=== PATIENT | female | born 1975 | race Caucasian/White ===

== ENCOUNTER 2020-02-29 16:16 | Emergency (ER) | payer OTHER ==
[2020-02-29] MEDS ORDERED: TORAdol 30 mg Injection IV ONE (16:37)
[2020-02-29] MEDS ORDERED: TORAdol 30 mg Injection ONE (16:40)
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
[2020-02-29] MEDS ORDERED: SUBLIMAZE 100 MCG/2 ML IV ONE (17:12)
[2020-02-29] MEDS ORDERED: Zofran 4 MG/2 ML VIAL IV ONE (17:12)
[2020-02-29] MEDS ORDERED: Zofran 4 MG/2 ML VIAL ONE (17:16)
[2020-02-29] MEDS ORDERED: SUBLIMAZE 100 MCG/2 ML ONE (17:16)
[2020-02-29 17:52] VITALS: BP 95/62; PULSE 67; O2SAT 99
== END 2020-02-29 17:52 | disposition home or self-care (01) ==
LOC: ED 16:16
DX: G44.309 Post-traumatic headache, unspecified, not intractable (principal); S60.211A Contusion of right wrist, initial encounter; S90.01XA Contusion of right ankle, initial encounter; V49.49XA Driver injured in collision with other motor vehicles in traffic accident, initial encounter
CPT/HCPCS: 36000; 70450; 73110; 73610; 96374; 96375; 99285; J1885; J2405; J3010

== ENCOUNTER 2022-07-18 10:36 | Emergency (ER) | payer OTHER ==
--- NOTE | 2022-07-18 10:41 | ERPHSYRPT ---
- History of Present Illness Time Seen by Provider: 07/18/22 10:41 Source: patient Exam Limitations: no limitations Physician History: This is a 46-year-old white female patient who works at [employer] and is in contact with many individuals each day. She presents with less than 2-day history of body aches, headache and decreased appetite. Patient has had decreased oral intake over the last nearly 2 days. Patient denies chest pain. She denies cough. She denies abdominal pain. She has had no vomiting or diarrhea symptoms. She has no urinary complaints. She denies fevers Timing/Duration: day(s) (Less than 2 days) Cough Quality/Degree: no cough Possible Cause: no prior episodes Modifying Factors: Improves With: nothing Associated Symptoms: headache, muscle aches, No fever, No chills, No chest pain/soreness, No cough, No sore throat Allergies/Adverse Reactions: aspirin Allergy (Verified 07/18/22 10:45) codeine Allergy (Verified 07/18/22 10:45) Hx Tetanus, Diphtheria Vaccination/Date Given: Yes Hx Influenza Vaccination/Date Given: Yes Hx Pneumococcal Vaccination/Date Given: No Travel Risk - International Travel Have you traveled outside of the country in past 3 weeks: No - Coronavirus Screening Are you exhibiting any of the following symptoms?: Yes Symptoms: Headaches/Body Aches/Fatigue Close contact with a COVID-19 positive Pt in past 14-21 Days: No - Review of Systems Constitutional: No Symptoms Eyes: No Symptoms Ears, Nose, & Throat: No Symptoms, Throat Swelling Cardiac: No Symptoms Abdominal/Gastrointestinal: Appetite Changes Genitourinary Symptoms: No Symptoms Musculoskeletal: Arthralgias, Myalgias Skin: No Symptoms Neurological: Headache Psychological: No Symptoms Endocrine: No Symptoms Hematologic/Lymphatic: No Symptoms Immunological/Allergic: No Symptoms All Other Systems: Reviewed and Negative - Past Medical History Pertinent Past Medical History: Yes Neurological History: No Pertinent History ENT History: No Pertinent History Cardiac History: No Pertinent History Respiratory History: No Pertinent History Endocrine Medical History: No Pertinent History Musculoskeletal History: No Pertinent History GI Medical History: No Pertinent History History: No Pertinent History Psycho-Social History: No Pertinent History Female Reproductive Disorders: Cervical Cancer - Past Surgical History Past Surgical History: Yes Neuro Surgical History: No Pertinent History Cardiac: No Pertinent History Respiratory: No Pertinent History Gastrointestinal: No Pertinent History, Cholecystectomy Genitourinary: No Pertinent History Musculoskeletal: No Pertinent History Female Surgical History: Hysterectomy Other Surgical History: LEEP - Social History Smoking Status: Current every day smoker How long have you smoked: 30 years Exposure to second hand smoke: Yes Drug Use: none Patient Lives Alone: No - Nursing Vital Signs Nursing Vital Signs: Initial Vital Signs Temperature 98.4 F 07/18/22 10:46 Pulse Rate 54 L 07/18/22 10:46 Respiratory Rate 18 07/18/22 10:46 Blood Pressure 90/67 07/18/22 10:46 O2 Sat by Pulse Oximetry 95 07/18/22 10:46 Pain Scale Pain Intensity [All over body] 8 Pain Intensity 5 - Physical Exam General Appearance: no apparent distress, alert, anxiety, thin Eye Exam: PERRL/EOMI, eyes nml inspection Ears, Nose, Throat Exam: normal ENT inspection, moist mucous membranes Neck Exam: normal inspection, non-tender, supple, full range of motion Respiratory Exam: normal breath sounds, lungs clear, airway intact, No chest tenderness, No respiratory distress Cardiovascular Exam: regular rate/rhythm, normal heart sounds, normal peripheral pulses Gastrointestinal/Abdomen Exam: soft, normal bowel sounds, No tenderness Pelvic Exam: not done Rectal Exam: not done Back Exam: normal inspection, normal range of motion, No CVA tenderness, No vertebral tenderness Extremity Exam: normal inspection, normal range of motion, pelvis stable Neurologic Exam: alert, oriented x 3, cooperative, roll hand II-XII nml as tested, normal mood/affect, nml cerebellar function, nml station & gait, sensation nml Skin Exam: normal color, warm Lymphatic Exam: No adenopathy SpO2 Interpretation: normal O2 Delivery: Room Air - Course Nursing assessment & vital signs reviewed: Yes Ordered Tests: Active Orders 24 hr Category Date Time Status IV Insertion STAT Care 07/18/22 11:15 Active Pulse Oximetry (ED) STAT Care 07/18/22 10:59 Active BLOOD CULTURE Stat Lab 07/18/22 11:25 Received Lactic Acid Stat Lab 07/18/22 10:59 Completed [place] Screen Stat Lab 07/18/22 11:15 Completed UA W/RFX CULTURE Stat Lab 07/18/22 11:07 Completed Medication Summary Discontinued Medications Generic Name Dose Route Start Last Admin Trade Name Freq PRN Reason Stop Dose Admin Sodium Chloride 1,000 mls @ 999 mls/hr 07/18/22 10:58 07/18/22 12:08 Sodium Chloride 0.9% 1000 Ml IV 07/18/22 11:58 Infused .Q1H1M STA Infusion Sodium Chloride Confirm 07/18/22 11:06 Sodium Chloride 0.9% 1000 Ml Administered 07/18/22 11:07 Dose 1,000 mls @ ud .ROUTE .STK-MED ONE Morphine Sulfate 4 mg 07/18/22 11:41 07/18/22 11:58 Morphine Sulfate 4 Mg/Ml Injection IV 07/18/22 11:42 4 mg STAT ONE Administration Morphine Sulfate Confirm 07/18/22 11:57 Morphine Sulfate 4 Mg/Ml Injection Administered 07/18/22 11:58 Dose 4 mg .ROUTE .STK-MED ONE Ondansetron HCl 4 mg 07/18/22 11:15 07/18/22 11:17 Ondansetron Hcl 4 Mg/2 Ml Vial IV 07/18/22 11:16 4 mg STAT ONE Administration Ondansetron HCl Confirm 07/18/22 11:16 Ondansetron Hcl 4 Mg/2 Ml Vial Administered 07/18/22 11:17 Dose 4 mg .ROUTE .STK-MED ONE Lab/Rad Data: Laboratory Results 07/18/22 07/18/22 07/18/22 Range/Units 11:25 11:25 11:15 Lactic Acid (0.4-2.0) Urinalys Dipstick Clnc Urine Color (YELLOW) Urine Appearance (CLEAR) Urine pH (5-6) Ur Specific Palmer (1.005-1.025) POC Urine Protein Conf (Negative) Urine Ketones (NEGATIVE) Urine Nitrite (NEGATIVE) Urine Bilirubin (NEGATIVE) Urine Urobilinogen (0-1) mg/dL Urine Leukocytes (NEGATIVE) Urine WBC (Auto) (0-5) /HPF Urine RBC (Auto) (0-2) /HPF U Epithel Cells (Auto) (FEW) /HPF Urine Bacteria (Auto) (NEGATIVE) /HPF Urine RBC (0-5) Praveen/ul Urine Mucus (Auto) (NEGATIVE) /HPF Ur Culture Indicated? Urine Glucose (NEGATIVE) mg/dL Monoscreen NEGATIVE (Negative) Influenza Type A Ag NEGATIVE (NEGATIVE) Influenza Type B Ag NEGATIVE (NEGATIVE) RSV (PCR) NEGATIVE (Negative) SARS-CoV-2 (PCR) POSITIVE A (NEGATIVE) Group A Strep Antibody NOT DETECTED (NEGATIVE) 07/18/22 07/18/22 Range/Units 11:07 10:59 Lactic Acid 0.7 (0.4-2.0) Urinalys Dipstick Clnc MAIN LAB Urine Color YELLOW (YELLOW) Urine Appearance CLEAR (CLEAR) Urine pH 5.5 (5-6) Ur Specific Palmer >=1.030 A (1.005-1.025) POC Urine Protein Conf TRACE A (Negative) Urine Ketones NEGATIVE (NEGATIVE) Urine Nitrite NEGATIVE (NEGATIVE) Urine Bilirubin NEGATIVE (NEGATIVE) Urine Urobilinogen 0.2 (0-1) mg/dL Urine Leukocytes NEGATIVE (NEGATIVE) Urine WBC (Auto) 3-5 A (0-5) /HPF Urine RBC (Auto) 3-5 A (0-2) /HPF U Epithel Cells (Auto) RARE (FEW) /HPF Urine Bacteria (Auto) RARE (NEGATIVE) /HPF Urine RBC NEGATIVE (0-5) Praveen/ul Urine Mucus (Auto) SLIGHT A (NEGATIVE) /HPF Ur Culture Indicated? NO Urine Glucose NEGATIVE (NEGATIVE) mg/dL Monoscreen (Negative) Influenza Type A Ag (NEGATIVE) Influenza Type B Ag (NEGATIVE) RSV (PCR) (Negative) SARS-CoV-2 (PCR) (NEGATIVE) Group A Strep Antibody (NEGATIVE) - Progress Progress: improved Air Movement: good Progress Note: 07/18/22 12:47 Patient states that she has had hydrocodone in the past without any problems. She states that she has taken this medicine several times without issue. Blood Culture(s) Obtained: Yes Antibiotics given: No Counseled pt/family regarding: lab results, diagnosis, need for follow-up - Departure Departure Disposition: Home Clinical Impression: COVID-19 virus infection Condition: Stable Critical Care Time: No Additional Instructions: Drink plenty of fluids. Advance your diet only if you are drinking clear liquids well. Take your medication as prescribed. Follow-up with your primary care provider for further evaluation and management. Quarantine yourself per your employer's protocol. Prescriptions: Ondansetron ODT 4 MG [Zofran Odt 4 mg] 4 mg PO Q6H PRN PRN #10 tablet PRN Reason: Vomiting Hydrocodone/Acetaminophen [Hydrocodone-Acetamn 7.5-325/15] 10 ml PO Q8H PRN PRN #120 ml MDD 30 ml PRN Reason: Cough
[2022-07-18] MEDS ORDERED: Sodium Chloride 0.9% 1000 ML 1,000 ML IV STA (10:58)
[2022-07-18] MEDS ORDERED: Sodium Chloride 0.9% 1000 ML 1,000 ML ONE (11:06)
[2022-07-18] MEDS ORDERED: Zofran 4 MG/2 ML VIAL IV ONE (11:15)
[2022-07-18] MEDS ORDERED: Zofran 4 MG/2 ML VIAL ONE (11:16)
[2022-07-18] MEDS ORDERED: MORPHINE SULFATE 4 MG INJ IV ONE (11:41)
[2022-07-18 11:43] LABS: Bacteria RARE /HPF (NEGATIVE); Epithelial Cells RARE /HPF (FEW); Mucus SLIGHT /HPF (NEGATIVE)
[2022-07-18 11:44] LABS: Appearance CLEAR (CLEAR); Bilirubin NEGATIVE (NEGATIVE); Dipstick done @ ? MAIN LAB; Glucose NEGATIVE (NEGATIVE); Ketones NEGATIVE (NEGATIVE); Nitrite NEGATIVE (NEGATIVE); Ph 5.5 (5-6); Protein,Urine Dip TRACE (Negative); RBC NEGATIVE Ery/ul (0-5); Specific Gravity >=1.030 (1.005-1.025); Urobilinogen 0.2 mg/dL (0-1)
[2022-07-18 11:45] LABS: Urine Cultured Indicated? NO
[2022-07-18] MEDS ORDERED: MORPHINE SULFATE 4 MG INJ ONE (11:57)
[2022-07-18 12:01] VITALS: BP 106/75
[2022-07-18 12:03] VITALS: PULSE 56
[2022-07-18 12:10] LABS: INFLUENZA A NEGATIVE (NEGATIVE); INFLUENZA B NEGATIVE (NEGATIVE); RESPIRATORY SYNCTIAL VIRUS NEGATIVE (Negative)
[2022-07-18 12:14] LABS: SARS-CoV-2 Xpert Express POSITIVE (NEGATIVE)
[2022-07-18 12:50] VITALS: O2SAT 98
== END 2022-07-18 12:58 | disposition home or self-care (01) ==
LOC: ED 10:36
DX: U07.1 COVID-19 (principal); R51.9 Headache, unspecified; M79.10 Myalgia, unspecified site; Z79.891 Long term (current) use of opiate analgesic; Z72.0 Tobacco use
CPT/HCPCS: 0241U; 36000; 36415; 81015; 83605; 86308; 87040; 87651; 94760; 96374; 96375; 99284; J2270; J2405

== ENCOUNTER 2023-01-24 07:21 | Emergency (ER) | payer OTHER ==
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
[2023-01-24] MEDS ORDERED: PROTONIX 40 MG IV IV ONE ×2 (07:28→07:37)
[2023-01-24] MEDS ORDERED: Sodium Chloride 0.9% 1000 ML 1,000 ML IV STA (07:28)
[2023-01-24] MEDS ORDERED: Zofran 4 MG/2 ML VIAL IV ONE (07:28)
[2023-01-24] MEDS ORDERED: Zofran 4 MG/2 ML VIAL ONE (07:37)
[2023-01-24] MEDS ORDERED: Sodium Chloride 0.9% 1000 ML 1,000 ML ONE (07:37)
[2023-01-24 07:44] LABS: Absolute Neutrophil Ct (ANC) 4.86 x10^3/uL (1.4-6.9); BASOPHIL % 0.7 % (0.0-0.4); Basophil (Absolute #) 0.05 x10^3/uL (0-0.4); Eosinophil % 2.2 % (0.00-5.0); Eosinophil (Absolute #) 0.15 x10^3/uL (0-0.5); Hematocrit 38.8 % (35-47); Hemoglobin 12.7 g/dL (12.0-16.0); IMMATURE GRAN # 0.02 x10^3u/L (0.00-0.03); IMMATURE GRAN % 0.3 % (0.00-0.4); Lymphocyte (Absolute #) 1.31 x10^3/uL (1.0-4.6); Lymphocytes % 18.9 % (24.0-44.0); Mean Cell Volume 100.8 fL (78-100); Mean Corpuscular Hgb Concent. 32.7 g/dL (32-36); Monocyte (Absolute #) 0.55 x10^3/uL (0.0-1.3); Monocytes % 7.9 % (0.0-12.0); Platelet Count 224 x10^3/uL (150-450); Red Blood Count 3.85 x10^6/uL (4.1-5.4); Red Cell Distribution Width 11.3 % (11.5-14.0); White Blood Count 6.9 x10^3/uL (4.0-10.5)
[2023-01-24 07:57] LABS: ALBUMIN 4.1 g/dL (3.5-5.0); ALKALINE PHOSPHATASE 41 U/L (38-126); AMYLASE 70 U/L (30-110); BLOOD UREA NITROGEN 10 mg/dL (7-17); CHLORIDE 112 mmol/L (98-107); Calcium 8.4 mg/dL (8.4-10.2); Carbon Dioxide 21 mmol/L (22-30); Creatinine 1 0.75 mg/dL (0.52-1.04); EST GLOMERULAR FILTRATION RATE > 60.0 ML/MIN; Glucose 84 mg/dL (74-106); LIPASE 111 U/L (23-300); Potassium 3.4 mmol/L (3.5-5.1); SGOT/AST 17 U/L (14-36); SGPT/ALT 14 U/L (0-35); SODIUM 143 mmol/L (137-145); Total Protein 7.2 g/dL (6.3-8.2)
[2023-01-24 08:03] VITALS: PULSE 57
[2023-01-24 08:29] LABS: INFLUENZA A NEGATIVE (NEGATIVE); INFLUENZA B NEGATIVE (NEGATIVE); RESPIRATORY SYNCTIAL VIRUS NEGATIVE (NEGATIVE); SARS-CoV-2 Xpert Express NEGATIVE (NEGATIVE)
--- NOTE | 2023-01-24 08:36 | XRAY ---
Indication: Weakness and nausea. Multiple contiguous axial images obtained through the head without contrast. Comparison: February 29, 2020 Normal appearing brain parenchyma, ventricles, and bony calvarium. Visualized paranasal sinuses and mastoid air cells are clear. Impression: Continued normal CT head without contrast exam.
[2023-01-24] MEDS ORDERED: Klor Con PO ONE ×2 (08:53→09:33)
[2023-01-24 09:00] LABS: Amphetamine,Urine POSITIVE (NEGATIVE); Barbiturate,Urine NEGATIVE (NEGATIVE); Benzodiazepine,Urine POSITIVE (NEGATIVE); Cocaine,Urine NEGATIVE (NEGATIVE); Methadone,Urine NEGATIVE (NEGATIVE); Opiate,Urine NEGATIVE (NEGATIVE); PCP,Urine NEGATIVE (NEGATIVE); THC,Urine NEGATIVE (NEGATIVE)
[2023-01-24 09:12] LABS: Appearance Cloudy (Clear); Bacteria None Seen /HPF (None Seen); Bilirubin Negative (Negative); Blood Negative (Negative); Epithelial Cells Few /HPF (None Seen); Glucose, Urine Negative (Negative); Ketones Trace (Negative); Leukocyte Esterase Negative (Negative); Nitrite Negative (Negative); Ph 5.5 (4.6-8.0); Protein,Urine Dip Negative (Negative); RBC 0-2 /HPF (0-5); Specific Gravity 1.025 (1.005-1.030)
[2023-01-24 09:13] LABS: ADD URINE CULTURE? NO (NO); WBC 0-2 /HPF (0-5)
[2023-01-24 09:53] VITALS: BP 94/59; O2SAT 99
== END 2023-01-24 10:08 | disposition home or self-care (01) ==
LOC: ED 07:21
DX: R55 Syncope and collapse (principal); T44.6X5A Adverse effect of alpha-adrenoreceptor antagonists, initial encounter; R51.9 Headache, unspecified; R07.9 Chest pain, unspecified; R11.2 Nausea with vomiting, unspecified; Z79.899 Other long term (current) drug therapy; Z28.310 Unvaccinated for COVID-19; Z72.0 Tobacco use
CPT/HCPCS: 0241U; 36415; 70450; 80053; 80307; 81001; 82150; 83690; 84484; 85025; 93005; 96360; 96374; 96375; 99284; J2405; A9270-GY

== ENCOUNTER 2023-08-30 15:01 | Emergency (ER) | payer OTHER ==
--- NOTE | 2023-08-30 15:03 | ERPHSYRPT ---
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 Patient has a history anxiety, chronic anemia and some psychiatric issues as well as seizure issues. Occurred: just prior to arrival Method of Injury: other (Lifting) Quality: aching Severity of Pain-Max: mild (To moderate) Severity of Pain-Current: mild (To moderate) Extremities Pain Location: elbow: right Modifying Factors: Improves With: movement Associated Symptoms: none Allergies/Adverse Reactions: aspirin Allergy (Verified 08/30/23 15:05) codeine Allergy (Verified 08/30/23 15:05) Home Medications: ALPRAZolam 0.25 MG [xanAX 0.25 MG] 0.25 mg PO HS PRN 01/24/23 [History] Dextroamphetamine/Amphetamine [Adderall Xr 25 mg Capsule] 25 mg PO DAILY 01/24/23 [History] Topiramate 100 mg [Topamax 100 MG] 100 mg PO BID 01/24/23 [History] ziprasidone HCL [Ziprasidone HCl] 40 mg PO DAILY 01/24/23 [History] Meloxicam 15 mg [Meloxicam 15 MG] 15 mg PO DAILY 08/30/23 [History] Hx Tetanus, Diphtheria Vaccination/Date Given: Yes Hx Influenza Vaccination/Date Given: Yes Hx Pneumococcal Vaccination/Date Given: No Travel Risk - International Travel Have you traveled outside of the country in past 3 weeks: No - Coronavirus Screening Are you exhibiting any of the following symptoms?: No Close contact with a COVID-19 positive Pt in past 14-21 Days: No - Vaccine Status Have you recieved a Covid-19 vaccination: No - Review of Systems Constitutional: No Symptoms Eyes: No Symptoms Ears, Nose, & Throat: No Symptoms Respiratory: No Symptoms Cardiac: No Symptoms Abdominal/Gastrointestinal: No Symptoms Genitourinary Symptoms: No Symptoms Musculoskeletal: Injury Skin: No Symptoms (Right elbow) Neurological: No Symptoms Psychological: No Symptoms Endocrine: No Symptoms Hematologic/Lymphatic: No Symptoms Immunological/Allergic: No Symptoms All Other Systems: Reviewed and Negative - Past Medical History Pertinent Past Medical History: Yes Neurological History: No Pertinent History ENT History: No Pertinent History Cardiac History: No Pertinent History Respiratory History: No Pertinent History Endocrine Medical History: No Pertinent History Musculoskeletal History: No Pertinent History GI Medical History: No Pertinent History History: No Pertinent History Psycho-Social History: No Pertinent History Female Reproductive Disorders: Cervical Cancer Other Medical History: fluid around her heart, low B/P, anemia - Past Surgical History Past Surgical History: Yes Neuro Surgical History: No Pertinent History Cardiac: No Pertinent History Respiratory: No Pertinent History Gastrointestinal: No Pertinent History, Cholecystectomy Genitourinary: No Pertinent History Musculoskeletal: No Pertinent History Female Surgical History: Hysterectomy Other Surgical History: LEEP - Social History Smoking Status: Current every day smoker How long have you smoked: 30 years Exposure to second hand smoke: Yes Drug Use: none Patient Lives Alone: No - Nursing Vital Signs Nursing Vital Signs: Initial Vital Signs Pulse Rate 57 L 08/30/23 15:07 Blood Pressure 111/77 08/30/23 15:07 O2 Sat by Pulse Oximetry 99 08/30/23 15:07 Pain Scale Pain Intensity 7 - Physical Exam General Appearance: no apparent distress, alert, anxiety Eyes, Ears, Nose, Throat Exam: normal ENT inspection, moist mucous membranes Neck Exam: normal inspection, non-tender, supple, full range of motion Cardiovascular/Respiratory Exam: chest non-tender, no respiratory distress Abdominal Exam: non-tender Back Exam: normal inspection, normal range of motion, No CVA tenderness, No vertebral tenderness Shoulder Exam: normal inspection, non-tender, no evidence of injury, normal ROM Elbow/Forearm Exam: normal inspection, no evidence of injury, normal ROM, bone tenderness, soft tissue tenderness Hand Exam: normal inspection, non-tender, no evidence of injury, normal ROM Neuro/Tendon Exam: normal sensation, normal motor functions, normal tendon functions Mental Status Exam: alert, oriented x 3, cooperative Skin Exam: normal color, warm, dry SpO2 Interpretation: normal O2 Delivery: Room Air - Course Nursing assessment & vital signs reviewed: Yes Ordered Tests: Active Orders 24 hr Category Date Time Status ELBOW (MINIMUM 3 VIEWS) Stat Exams 08/30/23 15:12 Taken - Progress Progress: unchanged Progress Note: 08/30/23 15:44 This patient's medical issue is 1 of moderate complexity. Level complex in the workup performed is based on review of the patient's past medical history, review the patient's medication list, review of patient's drug allergy list, history present illness and physical findings on examination. The patient workup includes x-ray of the right elbow. I interpreted the x-ray of the right elbow. There is no acute fracture. There is no acute dislocation. 08/30/23 16:06 Patient states that she can take hydrocodone. I will remotely send a prescription to her pharmacy for a couple days worth of this medication. Counseled pt/family regarding: diagnosis, need for follow-up, rad results Medical Desision Making - Independent Historian Additional History obtained from: Spouse - Diagnostic Testing Diagnostic test were ordered, analyzed, and reviewed by me: Yes Radiological Interpretation: Interpreted by me - Risk of complications The pt has a mod risk of morbidity or mortality based on: Need for prescription drug management - Departure Departure Disposition: Home Clinical Impression: Right elbow pain Condition: Stable Critical Care Time: No Referrals: YEMI GAN PA [Primary Care Provider] - Follow up/PCP as directed Additional Instructions: Ice pack to tender area 3 times a day for the next 48 hours. Take your medications as prescribed. Follow-up with your primary care provider by phone next week for persistent symptoms. Forms: Work/School Release Form Prescriptions: Hydrocodone/APAP 5/325 [[place] 5/325 mg] 1 each PO Q8H PRN PRN #6 tablet MDD 3 PRN Reason: Pain
[2023-08-30 15:21] VITALS: PULSE 63; RESP 16; TEMP 97.9
[2023-08-30 16:07] VITALS: BP 109/79; O2SAT 98
--- NOTE | 2023-08-30 21:39 | XRAY ---
Indication: Pain. Comparison: None 3 view right elbow obtained. No bony, articular, or soft tissue abnormalities.
== END 2023-08-30 16:22 | disposition home or self-care (01) ==
LOC: ED 15:01
DX: M25.521 Pain in right elbow (principal); Z79.891 Long term (current) use of opiate analgesic; Z79.899 Other long term (current) drug therapy; Z28.310 Unvaccinated for COVID-19; Z72.0 Tobacco use
CPT/HCPCS: 73080; 99283

== ENCOUNTER 2023-09-24 13:43 | Emergency (ER) | payer OTHER ==
[2023-09-24 14:05] VITALS: BP 133/77; PULSE 58; RESP 18; TEMP 97.2; O2SAT 100
[2023-09-24] MEDS ORDERED: Adacel Vial IM ONE ×2 (15:01→15:10)
[2023-09-24] MEDS ORDERED: TYLENOL 325 MG PO ONE (15:01)
--- NOTE | 2023-09-24 15:05 | ERPHSYRPT ---
- History of Present Illness Time Seen by Provider: 09/24/23 14:40 Source: patient Exam Limitations: no limitations Patient Subjective Stated Complaint: Finger laceration Triage Nursing Assessment: Patient ambulated back to ED and transferred self to bed. Patient A+O X3. Patient's skin pink, warm and dry. Patient states she works at [employer] and was using a journal box inspector when her hand slipped causing the blade to cut her left hand, 2nd digit. Patient complains of pain 8/10 to finger. 0.3 skin flap noted to left hand, 2nd digit, bleeding well controlled. Physician History: 48-year-old female presents to the emergency department for evaluation of a laceration to the lateral aspect of her left index finger. Patient works at the [employer]. Patient was using a journal box inspector when the journal box inspector repor tedly slipped and injured her involved finger. Patient presented to our ED as she was concerned with the bleeding. However upon arrival bleeding had resolved. There is a small superficial laceration observed. No other injuries reported. Tetanus is not up-to-date. Patient is otherwise healthy. She voices no other complaints or concerns at this time. No foreign body sensation of the involved digit Portions of this note were created with voice recognition technology. There may be grammatical, spelling, punctuation or sound alike errors Timing/Duration: today Severity: mild Modifying Factors: Improves With: nothing Associated Symptoms: denies symptoms Allergies/Adverse Reactions: aspirin Allergy (Verified 09/24/23 13:55) codeine Allergy (Verified 09/24/23 13:55) Home Medications: ALPRAZolam 0.25 MG [xanAX 0.25 MG] 0.25 mg PO HS PRN 01/24/23 [History] Dextroamphetamine/Amphetamine [Adderall Xr 25 mg Capsule] 25 mg PO DAILY 01/24/23 [History] Topiramate 100 mg [Topamax 100 MG] 100 mg PO BID 01/24/23 [History] ziprasidone HCL [Ziprasidone HCl] 40 mg PO DAILY 01/24/23 [History] Meloxicam 15 mg [Meloxicam 15 MG] 15 mg PO DAILY 08/30/23 [History] Hx Tetanus, Diphtheria Vaccination/Date Given: No Hx Influenza Vaccination/Date Given: Yes Hx Pneumococcal Vaccination/Date Given: No Immunizations Up to Date: Yes Travel Risk - International Travel Have you traveled outside of the country in past 3 weeks: No - Coronavirus Screening Are you exhibiting any of the following symptoms?: No - Vaccine Status Have you recieved a Covid-19 vaccination: No - Review of Systems Constitutional: No Symptoms, No Fever, No Chills Eyes: No Symptoms Ears, Nose, & Throat: No Symptoms Respiratory: No Symptoms, No Cough, No Dyspnea Cardiac: No Symptoms, No Chest Pain, No Edema, No Syncope Abdominal/Gastrointestinal: No Symptoms, No Abdominal Pain, No Nausea, No Vomiting, No Diarrhea Genitourinary Symptoms: No Symptoms, No Dysuria Musculoskeletal: No Symptoms, No Back Pain, No Neck Pain Skin: No Symptoms, No Rash Neurological: No Symptoms, No Dizziness, No Focal Weakness, No Sensory Changes Psychological: No Symptoms Endocrine: No Symptoms Hematologic/Lymphatic: No Symptoms Immunological/Allergic: No Symptoms All Other Systems: Reviewed and Negative - Past Medical History Pertinent Past Medical History: Yes Neurological History: No Pertinent History ENT History: No Pertinent History Cardiac History: No Pertinent History Respiratory History: No Pertinent History Endocrine Medical History: No Pertinent History Musculoskeletal History: No Pertinent History GI Medical History: No Pertinent History History: No Pertinent History Psycho-Social History: No Pertinent History Female Reproductive Disorders: Cervical Cancer Other Medical History: fluid around her heart, low B/P, anemia - Past Surgical History Past Surgical History: Yes Neuro Surgical History: No Pertinent History Cardiac: No Pertinent History Respiratory: No Pertinent History Gastrointestinal: No Pertinent History, Cholecystectomy Genitourinary: No Pertinent History Musculoskeletal: No Pertinent History Female Surgical History: Hysterectomy Other Surgical History: LEEP - Social History Smoking Status: Current every day smoker How long have you smoked: 30 years Exposure to second hand smoke: Yes Drug Use: none Patient Lives Alone: No - Female History Hx Last Menstrual Period: partial hysterectomy Hx Now: No - Nursing Vital Signs Nursing Vital Signs: Initial Vital Signs Temperature 97.2 F 09/24/23 13:57 Pulse Rate 58 L 09/24/23 13:57 Respiratory Rate 18 09/24/23 13:57 Blood Pressure 133/77 09/24/23 13:57 O2 Sat by Pulse Oximetry 100 09/24/23 13:57 Pain Scale Pain Intensity 8 - Physical Exam General Appearance: no apparent distress, alert Eye Exam: PERRL/EOMI, eyes nml inspection Neck Exam: normal inspection, full range of motion Respiratory Exam: normal breath sounds, airway intact, No respiratory distress Cardiovascular Exam: regular rate/rhythm, normal peripheral pulses Gastrointestinal/Abdomen Exam: No tenderness, No mass Back Exam: normal range of motion, No CVA tenderness, No vertebral tenderness Extremity Exam: normal inspection, normal range of motion, pelvis stable, other (There is a 1 cm laceration superficial left lateral index finger. No active bleeding. Skin edges are well-approximated. Involved digits neurovascular intact distally compartments are soft cap refill less than 2 seconds. Pulse palpable. The involved fingers pink warm well-perfused no involvement) Neurologic Exam: alert, oriented x 3, cooperative, normal mood/affect, sensation nml, No motor deficits Skin Exam: normal color, warm, dry, No rash Lymphatic Exam: No adenopathy SpO2 Interpretation: normal SpO2: 100 O2 Delivery: Room Air - Course Nursing assessment & vital signs reviewed: Yes - Progress Progress: improved Progress Note: 48-year-old female presents to the emergency department for evaluation of a superficial laceration to the lateral aspect of her left index finger. No involvement of her tendon. The involved digits neurovascular tact distally. Hemostasis observed upon arrival. No need for suture repair. Dermabond applied. Involved digits neurovascular tact distally. Tetanus updated. Patient received Tylenol for pain control as she is allergic to NSAIDs. No indication for further workup at this time. No indication for x-ray. No foreign body sensation at the site of involvement. Patient voices no other complaints or concerns at this time. Portions of this note were created with voice recognition technology. There may be grammatical, spelling, punctuation or sound alike errors Complexity of problem addressed is low acute uncomplicated No critical care time Complexity of data reviewed and analyzed is none. Diagnosis made based on history and physical exam. No specialized testing ordered. Risk of complication and or risk of morbidity/mortality is low. No indication for antibiotics at this time. Patient agrees to follow-up with her primary care doctor within 48 hours for evaluation. Patient be discharged home vital stable. Time spent to discharge patient is approximately 10 minutes. Plan of care established for shared decision making. No social determinants of health present impede follow-up. Portions of this note were created with voice recognition technology. There may be grammatical, spelling, punctuation or sound alike errors 09/24/23 15:08 Counseled pt/family regarding: diagnosis, need for follow-up - Departure Departure Disposition: Home Clinical Impression: Finger laceration Condition: Stable Critical Care Time: No Referrals: YEMI GAN PA [Primary Care Provider] - Follow up/PCP as directed Additional Instructions: Discharge/Care Plan JANNETTE SANCHEZ was seen on 09/24/23 in the Emergency Room. The patient was c ounseled regarding Diagnosis,Lab results, Imaging studies, need for follow up and when to return to the Emergency Room. Prescriptions given: Discharge Note I have spoken with the patient and/or caregivers. I have explained the patient's condition, diagnosis and treatment plan based on the information available to me at this time. I have answered the patient's and/or caregiver's questions and addressed any concerns. The patient and/or caregivers have as good understanding of the patient's diagnosis, condition and treatment plan as can be expected at this point. The vital signs have been stable. The patient's condition is stable and appropriate for discharge from the emergency department. The patient will pursue further outpatient evaluation with the primary care physician or other designated or consulting physician as outlined in the discharge instructions. The patient and/or caregivers are agreeable to this plan of care and follow-up instructions have been explained in detail. The patient and/or caregivers have received these instruction. The patient/and or caregivers are aware that any significant change in condition or worsening of symptoms should prompt an immediate return to this or the closest emergency department or call 911.
[2023-09-24] MEDS ORDERED: TYLENOL 325 MG ONE (15:10)
== END 2023-09-24 15:20 | disposition home or self-care (01) ==
LOC: ED 13:43
DX: S61.211A Laceration without foreign body of left index finger without damage to nail, initial encounter (principal); W26.0XXA Contact with knife, initial encounter; Y92.512 Supermarket, store or market as the place of occurrence of the external cause; Y99.0 Civilian activity done for income or pay; Z79.899 Other long term (current) drug therapy; Z28.310 Unvaccinated for COVID-19; Z72.0 Tobacco use; Z23 Encounter for immunization
CPT/HCPCS: 12001; 90471; 90715; 99282; A9270-GY

== ENCOUNTER 2024-05-20 20:40 | Emergency (ER) | payer SELFPAY ==
[2024-05-20 20:59] VITALS: TEMP 97.6
[2024-05-20 21:06] LABS: Absolute Neutrophil Ct (ANC) 3.75 x10^3/uL (1.56-6.13); BASOPHIL % 0.7 % (0.1-1.2); Basophil (Absolute #) 0.05 x10^3/uL (0.01-0.08); Eosinophil % 1.5 % (0.7-5.8); Eosinophil (Absolute #) 0.11 x10^3/uL (0.04-0.36); Hematocrit 38.2 % (34.1-44.9); Hemoglobin 12.7 g/dL (11.2-15.7); IMMATURE GRAN # 0.01 x10^3u/L (0.001-0.031); IMMATURE GRAN % 0.1 % (0.001-0.429); Lymphocyte (Absolute #) 2.69 x10^3/uL (1.18-3.74); Lymphocytes % 37.7 % (19.3-51.7); Mean Cell Volume 99.2 fL (79.4-94.8); Mean Corpuscular Hgb Concent. 33.2 g/dL (32.2-35.5); Mean Platelet Volume 10.3 fL (9.4-12.3); Monocyte (Absolute #) 0.53 x10^3/uL (0.24-0.86); Monocytes % 7.4 % (4.7-12.5); Neutrophil % 52.6 % (34.0-71.1); Platelet Count 243 x10^3/uL (182-369); Red Blood Count 3.85 x10^6/uL (3.93-5.22); Red Cell Distribution Width 11.9 % (11.7-14.4); White Blood Count 7.1 x10^3/uL (3.98-10.04)
[2024-05-20] MEDS ORDERED: Sodium Chloride 0.9% 1000 ML 1,000 ML ONE (21:08)
[2024-05-20] MEDS ORDERED: TORAdol 30 mg Injection ONE (21:08)
[2024-05-20] MEDS: Sodium Chloride 0.9% 1000 ML 1,000 ML IV STA (21:11)
[2024-05-20] MEDS: TORAdol 30 mg Injection IV ONE (21:12)
--- NOTE | 2024-05-20 21:31 | ERPHSYRPT ---
- History of Present Illness Time Seen by Provider: 05/20/24 20:50 Source: patient Exam Limitations: no limitations Patient Subjective Stated Complaint: c/o of body aches, ear pain, sore throat, and migraines Triage Nursing Assessment: Pt brought to ED by chirag for a well adult check. Patient states she hasn't felt well int he past 2 days. Symptoms of body aches, migraines, sore throat, chills, and bilat. ear pain. Pt stated she had recently pulled three ticks of off her. Pt's vitals wnl, gait steady, skin w/n/d, pulses normal, pt doesn't appear to be in any distress at this time. Physician History: 48-year-old female presents to emergency department for evaluation of viral-like symptoms. Symptoms started today. Patient complaining of a headache sore throat ear pressure generalized bodyaches. 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 Patient is exposed to many people but no obvious sick contacts. No vomiting. No frantz rrhea no rash. No fever. Symptoms are mild to moderate in intensity. No specific worsening or improving factors. Significant other at bedside. They voiced no other complaints or concerns at this time. Portions of this note were created with voice recognition technology. There may be grammatical, spelling, punctuation or sound alike errors Timing/Duration: today Severity: moderate Modifying Factors: Improves With: nothing Associated Symptoms: denies symptoms Allergies/Adverse Reactions: aspirin Allergy (Verified 09/24/23 13:55) codeine Allergy (Verified 05/20/24 21:00) Home Medications: ALPRAZolam 0.25 MG [xanAX 0.25 MG] 0.25 mg PO HS PRN 01/24/23 [History] Dextroamphetamine/Amphetamine [Adderall Xr 25 mg Capsule] 25 mg PO DAILY 01/24/23 [History] Topiramate 100 mg [Topamax 100 MG] 100 mg PO BID 01/24/23 [History] Meloxicam 15 mg [Meloxicam 15 MG] 15 mg PO DAILY 08/30/23 [History] Estradiol 1 mg [Estrace 1 mg] 1 mg PO DAILY 05/20/24 [History] Hx Tetanus, Diphtheria Vaccination/Date Given: Yes Hx Influenza Vaccination/Date Given: No Hx Pneumococcal Vaccination/Date Given: No Travel Risk - International Travel Have you traveled outside of the country in past 3 weeks: No - Emerging Infectious Disease Are you exhibiting symptoms associated with any current EIDs: Yes Symptoms: Headaches/Body Aches/ - Review of Systems Constitutional: No Symptoms, No Fever, No Chills Eyes: No Symptoms Ears, Nose, & Throat: No Symptoms, Other (Anterior cervical lymphadenopathy) Respiratory: No Symptoms, No Cough, No Dyspnea Cardiac: No Symptoms, No Chest Pain, No Edema, No Syncope Abdominal/Gastrointestinal: No Symptoms, No Abdominal Pain, No Nausea, No Vomiting, No Diarrhea Genitourinary Symptoms: No Symptoms, No Dysuria Musculoskeletal: No Symptoms, No Back Pain, No Neck Pain Skin: No Symptoms, No Rash Neurological: No Symptoms, No Dizziness, No Focal Weakness, No Sensory Changes Psychological: No Symptoms Endocrine: No Symptoms Hematologic/Lymphatic: No Symptoms Immunological/Allergic: No Symptoms All Other Systems: Reviewed and Negative - Past Medical History Pertinent Past Medical History: Yes Neurological History: No Pertinent History ENT History: No Pertinent History Cardiac History: No Pertinent History Respiratory History: No Pertinent History Endocrine Medical History: No Pertinent History Musculoskeletal History: No Pertinent History GI Medical History: No Pertinent History, Other History: No Pertinent History Psycho-Social History: No Pertinent History Female Reproductive Disorders: Cervical Cancer Other Medical History: fluid around her heart, low B/P, anemia, gall stones, calcification of kidneys - Past Surgical History Past Surgical History: Yes Neuro Surgical History: No Pertinent History Cardiac: No Pertinent History Respiratory: No Pertinent History Gastrointestinal: No Pertinent History, Cholecystectomy Genitourinary: No Pertinent History Musculoskeletal: No Pertinent History Female Surgical History: Hysterectomy Other Surgical History: LEEP - Female History Hx Last Menstrual Period: hysterectomy Hx Now: No - Social History Smoking Status: Former smoker How long have you smoked: 30 years Exposure to second hand smoke: Yes Drug Use: none Patient Lives Alone: No - Social Determinants of Health Will the patient participate in the screening: Yes Do you worry about a steady place to live?: No Do you have any problems with any of the following?: No known problems In the past 12 months,have you had to go without utilities?: No Transportation Issues: No Has anyone in your support network made you feel unsafe?: No Have you or anyone in your house had to go without enough: No - Nursing Vital Signs Nursing Vital Signs: Initial Vital Signs Temperature 97.6 F 05/20/24 20:45 Pulse Rate 61 05/20/24 20:45 Respiratory Rate 18 05/20/24 20:45 Blood Pressure 115/82 05/20/24 20:45 O2 Sat by Pulse Oximetry 99 05/20/24 20:45 Pain Scale Pain Intensity 8 - Physical Exam General Appearance: no apparent distress, alert Eye Exam: PERRL/EOMI, eyes nml inspection Ears, Nose, Throat Exam: normal ENT inspection, moist mucous membranes Neck Exam: normal inspection, non-tender, supple, full range of motion Respiratory Exam: normal breath sounds, lungs clear, airway intact, No respiratory distress Cardiovascular Exam: regular rate/rhythm, normal heart sounds, normal peripheral pulses Gastrointestinal/Abdomen Exam: soft, normal bowel sounds, No tenderness, No mass Back Exam: normal inspection, normal range of motion, No CVA tenderness, No vertebral tenderness Extremity Exam: normal inspection, normal range of motion, pelvis stable Neurologic Exam: alert, oriented x 3, cooperative, normal mood/affect, nml cerebellar function, nml station & gait, sensation nml, No motor deficits Skin Exam: normal color, warm, dry, No rash Lymphatic Exam: No adenopathy SpO2 Interpretation: normal SpO2: 99 O2 Delivery: Room Air - Course Nursing assessment & vital signs reviewed: Yes Ordered Tests: Active Orders 24 hr Category Date Time Status Automotive Instructor STAT Care 05/20/24 20:55 Active IV Insertion STAT Care 05/20/24 20:54 Active Pulse Oximetry (ED) STAT Care 05/20/24 20:54 Active CBC W DIFF Stat Lab 05/20/24 21:00 Completed CMP Stat Lab 05/20/24 21:00 Completed HCG QUALITATIVE, URINE Stat Lab 05/20/24 22:16 Completed MAGNESIUM Stat Lab 05/20/24 21:00 Completed TROPONIN Q4H Lab 05/20/24 21:00 Completed TROPONIN Q4H Lab 05/21/24 01:00 Ordered TROPONIN Q4H Lab 05/21/24 05:00 Ordered UA W/RFX UR CULTURE Stat Lab 05/20/24 22:16 Completed Medication Summary Discontinued Medications Generic Name Dose Route Start Last Admin Trade Name Freq PRN Reason Stop Dose Admin Sodium Chloride 1,000 mls @ 999 mls/hr 05/20/24 20:54 05/20/24 21:11 Sodium Chloride 0.9% 1000 Ml IV 05/20/24 21:54 999 mls/hr .Q1H1M STA Administration Sodium Chloride Confirm 05/20/24 21:08 Sodium Chloride 0.9% 1000 Ml Administered 05/20/24 21:09 Dose 1,000 mls @ ud .ROUTE .STK-MED ONE Ketorolac Tromethamine 30 mg 05/20/24 20:55 05/20/24 21:12 Ketorolac Tromethamine 30 Mg/Ml Inj IV 05/20/24 20:56 30 mg STAT ONE Administration Ketorolac Tromethamine Confirm 05/20/24 21:08 Ketorolac Tromethamine 30 Mg/Ml Inj Administered 05/20/24 21:09 Dose 30 mg .ROUTE .STK-MED ONE Lab/Rad Data: Laboratory Result Diagrams 05/20/24 21:00 05/20/24 21:00 Laboratory Results 05/20/24 05/20/24 05/20/24 Range/Units 22:16 22:16 21:03 WBC (3.98-10.04) x10^3/uL RBC (3.93-5.22) x10^6/uL Hgb (11.2-15.7) g/dL Hct (34.1-44.9) % MCV (79.4-94.8) fL MCH (25.6-32.2) pg MCHC (32.2-35.5) g/dL RDW (11.7-14.4) % Plt Count (182-369) x10^3/uL MPV (9.4-12.3) fL Gran % (34.0-71.1) % Immature Gran % (Auto) (0.001-0.429) % Nucleat RBC Rel Count (0.00-0.2) % Eos # (Auto) (0.04-0.36) x10^3/uL Immature Gran # (Auto) (0.001-0.031) x10^3u/L Absolute Lymphs (auto) (1.18-3.74) x10^3/uL Absolute Monos (auto) (0.24-0.86) x10^3/uL Absolute Nucleated RBC (0.00-0.012) x10^3u/L Lymphocytes % (19.3-51.7) % Monocytes % (4.7-12.5) % Eosinophils % (0.7-5.8) % Basophils % (0.1-1.2) % Absolute Granulocytes (1.56-6.13) x10^3/uL Basophils # (0.01-0.08) x10^3/uL Sodium (135-145) mmol/L Potassium (3.5-5.1) mmol/L Chloride (98-107) mmol/L Carbon Dioxide (22-30) mmol/L Anion Gap (5-15) MEQ/L BUN (7-17) mg/dL Creatinine (0.52-1.04) mg/dL Estimated GFR ML/MIN Glucose (74-106) mg/dL Calcium (8.4-10.2) mg/dL Magnesium (1.6-2.3) mg/dL Total Bilirubin (0.2-1.3) mg/dL AST (14-36) U/L ALT (0-35) U/L Alkaline Phosphatase (38-126) U/L Troponin I (0.000-0.033) ng/mL Serum Total Protein (6.3-8.2) g/dL Albumin (3.5-5.0) g/dL Urine Color Yellow (Yellow) Urine Appearance Clear (Clear) Urine pH 5.0 (4.6-8.0) Ur Specific [place] 1.025 (1.005-1.030) Urine Protein Negative (Negative) Urine Glucose (UA) Negative (Negative) mg/dL Urine Ketones Trace A (Negative) Urine Blood Negative (Negative) Urine Nitrite Negative (Negative) Urine Bilirubin Negative (Negative) Urine Urobilinogen 0.2 (0.2) mg/dL Ur Leukocyte Esterase Negative (Negative) U Hyaline Cast (Auto) NONE SEEN (0-2) /LPF Urine Microscopic RBC 0-2 (0-5) /HPF Urine Microscopic WBC 3-5 (0-5) /HPF Ur Epithelial Cells None Seen (None Seen) /HPF Urine Bacteria None Seen (None Seen) /HPF Urine Culture Reflexed NO (NO) Urine HCG, Qual NEGATIVE (NEGATIVE) Influenza Type A Ag (NEGATIVE) Influenza Type B Ag (NEGATIVE) RSV (PCR) (NEGATIVE) SARS-CoV-2 (PCR) (NEGATIVE) Group A Strep Antibody NOT DETECTED (NEGATIVE) 05/20/24 05/20/24 05/20/24 Range/Units 21:03 21:00 21:00 WBC (3.98-10.04) x10^3/uL RBC (3.93-5.22) x10^6/uL Hgb (11.2-15.7) g/dL Hct (34.1-44.9) % MCV (79.4-94.8) fL MCH (25.6-32.2) pg MCHC (32.2-35.5) g/dL RDW (11.7-14.4) % Plt Count (182-369) x10^3/uL MPV (9.4-12.3) fL Gran % (34.0-71.1) % Immature Gran % (Auto) (0.001-0.429) % Nucleat RBC Rel Count (0.00-0.2) % Eos # (Auto) (0.04-0.36) x10^3/uL Immature Gran # (Auto) (0.001-0.031) x10^3u/L Absolute Lymphs (auto) (1.18-3.74) x10^3/uL Absolute Monos (auto) (0.24-0.86) x10^3/uL Absolute Nucleated RBC (0.00-0.012) x10^3u/L Lymphocytes % (19.3-51.7) % Monocytes % (4.7-12.5) % Eosinophils % (0.7-5.8) % Basophils % (0.1-1.2) % Absolute Granulocytes (1.56-6.13) x10^3/uL Basophils # (0.01-0.08) x10^3/uL Sodium 140 (135-145) mmol/L Potassium 3.8 (3.5-5.1) mmol/L Chloride 110 H (98-107) mmol/L Carbon Dioxide 21 L (22-30) mmol/L Anion Gap 12.7 (5-15) MEQ/L BUN 12 (7-17) mg/dL Creatinine 0.76 (0.52-1.04) mg/dL Estimated GFR 97.8 ML/MIN Glucose 107 H (74-106) mg/dL Calcium 9.3 (8.4-10.2) mg/dL Magnesium 2.1 (1.6-2.3) mg/dL Total Bilirubin 0.40 (0.2-1.3) mg/dL AST 19 (14-36) U/L ALT 12 (0-35) U/L Alkaline Phosphatase 45 (38-126) U/L Troponin I < 0.012 (0.000-0.033) ng/mL Serum Total Protein 7.1 (6.3-8.2) g/dL Albumin 4.3 (3.5-5.0) g/dL Urine Color (Yellow) Urine Appearance (Clear) Urine pH (4.6-8.0) Ur Specific [place] (1.005-1.030) Urine Protein (Negative) Urine Glucose (UA) (Negative) mg/dL Urine Ketones (Negative) Urine Blood (Negative) Urine Nitrite (Negative) Urine Bilirubin (Negative) Urine Urobilinogen (0.2) mg/dL Ur Leukocyte Esterase (Negative) U Hyaline Cast (Auto) (0-2) /LPF Urine Microscopic RBC (0-5) /HPF Urine Microscopic WBC (0-5) /HPF Ur Epithelial Cells (None Seen) /HPF Urine Bacteria (None Seen) /HPF Urine Culture Reflexed (NO) Urine HCG, Qual (NEGATIVE) Influenza Type A Ag NEGATIVE (NEGATIVE) Influenza Type B Ag NEGATIVE (NEGATIVE) RSV (PCR) NEGATIVE (NEGATIVE) SARS-CoV-2 (PCR) NEGATIVE (NEGATIVE) Group A Strep Antibody (NEGATIVE) 05/20/24 Range/Units 21:00 WBC 7.1 (3.98-10.04) x10^3/uL RBC 3.85 L (3.93-5.22) x10^6/uL Hgb 12.7 (11.2-15.7) g/dL Hct 38.2 (34.1-44.9) % MCV 99.2 H (79.4-94.8) fL MCH 33.0 H (25.6-32.2) pg MCHC 33.2 (32.2-35.5) g/dL RDW 11.9 (11.7-14.4) % Plt Count 243 (182-369) x10^3/uL MPV 10.3 (9.4-12.3) fL Gran % 52.6 (34.0-71.1) % Immature Gran % (Auto) 0.1 (0.001-0.429) % Nucleat RBC Rel Count 0.0 (0.00-0.2) % Eos # (Auto) 0.11 (0.04-0.36) x10^3/uL Immature Gran # (Auto) 0.01 (0.001-0.031) x10^3u/L Absolute Lymphs (auto) 2.69 (1.18-3.74) x10^3/uL Absolute Monos (auto) 0.53 (0.24-0.86) x10^3/uL Absolute Nucleated RBC 0.00 (0.00-0.012) x10^3u/L Lymphocytes % 37.7 (19.3-51.7) % Monocytes % 7.4 (4.7-12.5) % Eosinophils % 1.5 (0.7-5.8) % Basophils % 0.7 (0.1-1.2) % Absolute Granulocytes 3.75 (1.56-6.13) x10^3/uL Basophils # 0.05 (0.01-0.08) x10^3/uL Sodium (135-145) mmol/L Potassium (3.5-5.1) mmol/L Chloride (98-107) mmol/L Carbon Dioxide (22-30) mmol/L Anion Gap (5-15) MEQ/L BUN (7-17) mg/dL Creatinine (0.52-1.04) mg/dL Estimated GFR ML/MIN Glucose (74-106) mg/dL Calcium (8.4-10.2) mg/dL Magnesium (1.6-2.3) mg/dL Total Bilirubin (0.2-1.3) mg/dL AST (14-36) U/L ALT (0-35) U/L Alkaline Phosphatase (38-126) U/L Troponin I (0.000-0.033) ng/mL Serum Total Protein (6.3-8.2) g/dL Albumin (3.5-5.0) g/dL Urine Color (Yellow) Urine Appearance (Clear) Urine pH (4.6-8.0) Ur Specific [place] (1.005-1.030) Urine Protein (Negative) Urine Glucose (UA) (Negative) mg/dL Urine Ketones (Negative) Urine Blood (Negative) Urine Nitrite (Negative) Urine Bilirubin (Negative) Urine Urobilinogen (0.2) mg/dL Ur Leukocyte Esterase (Negative) U Hyaline Cast (Auto) (0-2) /LPF Urine Microscopic RBC (0-5) /HPF Urine Microscopic WBC (0-5) /HPF Ur Epithelial Cells (None Seen) /HPF Urine Bacteria (None Seen) /HPF Urine Culture Reflexed (NO) Urine HCG, Qual (NEGATIVE) Influenza Type A Ag (NEGATIVE) Influenza Type B Ag (NEGATIVE) RSV (PCR) (NEGATIVE) SARS-CoV-2 (PCR) (NEGATIVE) Group A Strep Antibody (NEGATIVE) - Progress Progress: improved Progress Note: 48-year-old female presents to emergency department for evaluation of viral-like symptoms. Physical exam essentially nonremarkable. Workup nonremarkable. CBC CMP appear normal. Urinalysis within normal limits. Magnesium normal. Troponin negative. Urinalysis negative. Viral panel negative. Rapid strep negative. Patient received Toradol and IV fluids. Patient observed sleeping. She is in no distress resting comfortably without complaints. Patient advised of the findings. Patient states that she will take tomorrow off. She declined a work note. at bedside. They voiced no other complaints or concerns at this time. They agree to follow-up with primary care doctor within 48 hours for reevaluation. Portions of this note were created with voice recognition technology. There may be grammatical, spelling, punctuation or sound alike errors Complexity of problem addressed is moderate acute complicated. No critical care time. Complex of data reviewed and analyzed is moderate. Test ordered test reviewed results analyzed and correlated clinically with history and physical e xam. Risk of complication and or risk of morbidity/mortality of patient management is low. Vital stable. Time spent to discharge patient is approximately 10 minutes. Plan of care established for shared decision making. No social determinants of health present impede follow-up. Portions of this note were created with voice recognition technology. There may be grammatical, spelling, punctuation or sound alike errors Counseled pt/family regarding: lab results, diagnosis, need for follow-up - Departure Departure Disposition: Home Clinical Impression: Viral syndrome Condition: Stable Critical Care Time: No Referrals: YEMI GAN PA [Primary Care Provider] - Follow up/PCP as directed Additional Instructions: Discharge/Care Plan JANNETTE SANCHEZ was seen on 05/20/24 in the Emergency Room. The patient was counseled regarding Diagnosis,Lab results, Imaging studies, need for follow up and when to return to the Emergency Room. Prescriptions given: Discharge Note I have spoken with the patient and/or caregivers. I have explained the patient's condition, diagnosis and treatment plan based on the information available to me at this time. I have answered the patient's and/or caregiver's questions and addressed any concerns. The patient and/or caregivers have as good understanding of the patient's diagnosis, condition and treatment plan as can be expected at this point. The vital signs have been stable. The patient's condition is stable and appropriate for discharge from the emergency department. The patient will pursue further outpatient evaluation with the primary care physician or other designated or consulting physician as outlined in the discharge instructions. The patient and/or caregivers are agreeable to this plan of care and follow-up instructions have been explained in detail. The patient and/or caregivers have received these instruction. The patient/and or caregivers are aware that any significant change in condition or worsening of symptoms sh ould prompt an immediate return to this or the closest emergency department or call 911.
[2024-05-20 21:33] LABS: ALBUMIN 4.3 g/dL (3.5-5.0); ANION GAP 12.7 MEQ/L (5-15); BILIRUBIN,TOTAL 0.4 mg/dL (0.2-1.3); Calcium 9.3 mg/dL (8.4-10.2); Creatinine 1 0.76 mg/dL (0.52-1.04); EST GLOMERULAR FILTRATION RATE 97.8 ML/MIN; MAGNESIUM 2.1 mg/dL (1.6-2.3); Potassium 3.8 mmol/L (3.5-5.1); Total Protein 7.1 g/dL (6.3-8.2)
[2024-05-20 21:51] LABS: INFLUENZA A NEGATIVE (NEGATIVE); INFLUENZA B NEGATIVE (NEGATIVE); RESPIRATORY SYNCTIAL VIRUS NEGATIVE (NEGATIVE); SARS-CoV-2 Xpert Express NEGATIVE (NEGATIVE)
[2024-05-20 22:27] LABS: HCG URINE TEST NEGATIVE (NEGATIVE)
[2024-05-20 22:31] LABS: Appearance Clear (Clear); Bacteria None Seen /HPF (None Seen); Bilirubin Negative (Negative); Blood Negative (Negative); Epithelial Cells None Seen /HPF (None Seen); Glucose, Urine Negative (Negative); Hyaline Casts NONE SEEN /LPF (0-2); Ketones Trace (Negative); Leukocyte Esterase Negative (Negative); Nitrite Negative (Negative); Protein,Urine Dip Negative (Negative); RBC 0-2 /HPF (0-5); Specific Gravity 1.025 (1.005-1.030); Urobilinogen 0.2 mg/dL (0.2)
[2024-05-20 22:35] LABS: ADD URINE CULTURE? NO (NO)
[2024-05-20 22:46] VITALS: O2SAT 99
[2024-05-20 23:03] VITALS: BP 99/66; PULSE 72; RESP 16
== END 2024-05-20 23:09 | disposition home or self-care (01) ==
LOC: ED 20:40
DX: B34.9 Viral infection, unspecified (principal); J02.9 Acute pharyngitis, unspecified; G43.909 Migraine, unspecified, not intractable, without status migrainosus; R52 Pain, unspecified; Z79.899 Other long term (current) drug therapy
CPT/HCPCS: 0241U; 36000; 36415; 80053; 81001; 81025; 83735; 84484; 85025; 87651; 93041; 94760; 96374; 99284; J1885